=== PATIENT | female | born 1960 | race Caucasian/White ===

== ENCOUNTER 2017-01-29 14:19 | Emergency (ER) | payer BC ==
--- NOTE | 2017-01-29 15:04 | UC ---
Head Injury HPI - HPI Summary HPI Summary: The patient comes in today for: 1. Fall, head injury, worsening back pain, rib pain: Onset: 3 hours ago. Palliative/provocative: Moving makes it worse. Quality: Dull ache for the head, ribs and back. Region: Frontal, bitemporal, left lateroposterior, and upper left buttocks. Severity: 2/10 sitting Time: Constant. Associated symptoms: Neck pain: She denies any neck pain coming in to see us. None now. Numbness: None. Weakness: None. Fever/infection: None. Bowel/bladder dysfunction: None. Unexpected weight loss/cancers: None. LMP: Hyst 1999 Head injury: Nausea: present, No LOC. No disorientation. No confusion. No photophobia. No phonophobia. The patient states that she mainly comes in to avoid any pain 1-2 days after the fall which she states is a problem she has had in the past. She states that her doctor also told her to come in to see us. * - History Of Current Complaint Chief Complaint: UCHeadInjury Stated Complaint: FELL OFF HORSE-NECK,HEAD, SHOULDER Time Seen by Provider: 01/29/17 14:58 Hx Obtained From: Patient Hx Last Menstrual Period: 1999 - Allergies/Home Medications Allergies/Adverse Reactions: Allergies Allergy/AdvReac Type Severity Reaction Status Date / Time Cephalexin Allergy Difficulty Verified 01/29/17 14:27 Breathing Kiwi Extract Allergy Difficulty Verified 01/29/17 14:27 Breathing Morphine Allergy Difficulty Verified 01/29/17 14:27 Breathing Penicillins Allergy Difficulty Verified 01/29/17 14:27 Breathing PMH/Surg Hx/FS Hx/Imm Hx Previously Healthy: No - Chronic lower back pain. Endocrine History Of: Reports: Dyslipidemia - Not on medications at this time. Denies: Diabetes, Thyroid Disease, Hyperthyroidism, Hypothyroidism Cardiovascular History Of: Denies: Cardiac Disorders, Hypertension, Pacemaker/ICD, Myocardial Infarction , Congestive Heart Failure, Atrial Fibrillation, Deep Vein Thrombosis, Bleeding Disorders Respiratory History Of: Reports: Asthma Denies: COPD, Bronchitis, Pneumonia, Pulmonary Embolism GI/ History Of: Reports: Gastroesophageal Reflux Denies: Ulcer, Gastrointestinal Bleed, Gall Bladder Disease, Kidney Stones, Diverticulitis, Renal Disease, Urosepsis Neurological History Of: Denies: TIA, CVA, Dementia, Seizures, Migraine Psychological History Of: Reports: Depression Denies: Anxiety, Bipolar Disorder, Schizophrenia, Post Traumatic Stress Disorder Cancer History Of: Denies: Lung Cancer, Colorectal Cancer, Breast Cancer, Prostate Cancer, Cervical Cancer Other History Of: Negative For: HIV, Hepatitis B, Hepatitis C, Anticoagulant Therapy - Surgical History Surgical History: Yes Surgery Procedure, Year, and Place: Partial Hysterectomy, 1999, [facility]. Benign Meningeoma Brain Surgery, 2006, [facility] - Family History Known Family History: Positive: Cardiac Disease Negative: Hypertension - Social History Occupation: Retired Alcohol Use: Occasionally Substance Use Type: None Smoking Status (MU): Never Smoked Tobacco - Immunization History Most Recent Tetanus Shot: December 2012 Review of Systems Constitutional: Negative Skin: Negative Eyes: Negative ENT: Negative Respiratory: Negative Cardiovascular: Chest Pain - Lower left posterior chest wall pain. Gastrointestinal: Negative Musculoskeletal: Arthralgia All Other Systems Reviewed And Are Negative: Yes Physical Exam Triage Information Reviewed: Yes Appearance: Well-Appearing, No Pain Distress - She sits comfortably in her chair --no marked guarding or psychomotor slowing while moving in the chair. She is able to get up from the chair with only slight caution and guarding., Well- Nourished Vital Signs: Initial Vital Signs Temp 98 F 01/29/17 14:28 Pulse 70 01/29/17 14:28 Resp 18 01/29/17 14:28 BP 120/81 01/29/17 14:28 Pulse Ox 100 01/29/17 14:28 Vital Signs Reviewed: Yes Eyes: Positive: Conjunctiva Clear. Negative: Discharge ENT: Positive: Hearing grossly normal. Negative: Pharyngeal erythema, Nasal congestion, Nasal drainage, TM bulging, TM dull, TM red, Tonsillar swelling, Tonsillar exudate Dental: Positive: Gross Decay/Caries @. Negative: Dental Fracture @ Neck: Positive: Supple, Nontender, No Lymphadenopathy. Negative: Nuchal Rigidity Respiratory: Positive: Chest non-tender, Lungs clear, No respiratory distress, No accessory muscle use. Negative: Rhonchi, Wheezing Cardiovascular: Positive: RRR, No Murmur Abdomen Description: Positive: Nontender, No Organomegaly, Soft. Negative: Distended, Guarding Musculoskeletal: Positive: Strength Intact, ROM Intact, No Edema, Other: - She has no tenderness along the neck posteriorly. She has no guarding of movement or restriction in movement. She has tenderness to palpation of the left lower posterior ribs. She has tenderness along the lumbar spin (not over the spinous processes, but just to the left of them. There was also tenderness to palpation along the left sacrum. None of these places have ecchymosis or masses or redness or masses or abrasions. Neurological: Positive: Alert, Muscle Tone Normal - Neurologic exam: Inspection : No fasciculations. Tone: No rigidity. Strenth: Upper extremity: symmetrical and appropriate for age. Lower extremity: symmetrical and appropriate for age. Cranial nerves: I-XII normal. Reflexes: Upper extremity Biceps: 2+/2 x 2 Triceps: 2+/2 x 2 Brachioradialis: 2+/2 x 2 Lower extremity: Achilles: 2+/2 x 2 Patellar: 2+/2 x 2 Babinski: downgoing bilaterally. Sensation: No complaints of loss of sensation. Coordination: Upper extremity: Finger to nose, patting of thighs (and alternating) and finger to thumb tests: Normal for both extremities. Lower extremity: Heel up and down sultana: Normal for both extremities. Gait: Heel to toe: Normal REgular walking: Normal Rhomberg: Normal. Psychological: Positive: Age Appropriate Behavior, Consolable Skin: Negative: rashes, breakdown Diagnostics - Radiology No standard instances Xray Interpretation: Positive (See Comments) - The CT of the head, the CT of the lumbar spine and the sacrum/coccyx were all normal. She had positive fractures of the ribs. Radiology Interpretation Completed By: Radiologist Head Injury Course/Dx - Course Course Of Treatment: Patient was told of the radiographic findings. She was told of her treatment options including NSAIDS (short course) and rib belt. - Differential Dx/Diagnosis Provider Diagnoses: Contusion of the left buttocks. Head injury. left rib fractures 4th, 5th, and 8th Discharge - Discharge Plan Condition: Stable Disposition: HOME Patient Education Materials: Rib Fracture (ED), Contusion in Adults (ED) Referrals: Derrick Heck MD [Primary Care Provider] - 1 Week (Please see your primary care provider in about one to two weeks to see how well you are doing. If you get worse, please be seen sooner.)
--- NOTE | 2017-01-29 16:02 | RAD ---
INDICATION: Pain after falling off of horse COMPARISON: None TECHNIQUE: AP and lateral imaging of the coccyx and sacrum was performed FINDINGS: No acute bony findings are seen. The SI joints and symphysis are intact. The soft tissues are normal IMPRESSION: NO ACUTE PLAIN RADIOGRAPHIC FINDINGS. SUGGEST A FOLLOW-UP BONE SCAN IF THERE IS PERSISTENT CONCERN.
--- NOTE | 2017-01-29 16:09 | RAD ---
INDICATION: Fall. Pain lower left ribs COMPARISON: Left shoulder February 03, 2008 TECHNIQUE: Multiple views of the ribs were obtained. FINDINGS: Bones: There are findings suspicious for nondisplaced fractures of the left fourth, fifth and eighth ribs posterolaterally. LUNGS: The lungs are clear. There is no pneumothorax. Pleural spaces: There is no evidence of hemothorax. Other: None IMPRESSION: SUSPECT MULTIPLE NONDISPLACED LEFT-SIDED RIB FRACTURES. NO PNEUMOTHORAX
--- NOTE | 2017-01-29 16:26 | RAD ---
INDICATION: Headaches after falling off for 6. History of meningioma resection 2009 COMPARISON: None TECHNIQUE: Noncontrast axial source images were acquired from the skull base to the vertex. FINDINGS: Ventricles/sulci: The ventricles and cisterns are normal in size and configuration for age. Brain parenchyma: There is no focal parenchymal finding, evidence of intracranial mass, or intracranial mass effect. Intracranial hemorrhage:None. Extra-axial spaces: There are no abnormal extra axial fluid collections or evidence of extra-axial mass. Calvarium: There is a right temporal craniotomy defect. Scalp: There is no evidence of scalp or extracalvarial soft tissue abnormality. Paranasal sinuses/mastoid: The paranasal sinuses and mastoid air cells are clear. Other: None. IMPRESSION: NONCONTRAST IMAGING DEMONSTRATES NO ACUTE INTRACRANIAL FINDINGS. RIGHT-SIDED CRANIOTOMY DEFECT.
--- NOTE | 2017-01-29 16:37 | RAD ---
Indication: Low back and sacral region pain post fall from horse approximate 4 hours ago. Denies radiculopathy. Comparison: August 25, 2016 radiographs. Technique: Noncontrast CT lumbar sacral spine. Multiplanar reformation. Report: Negative for paravertebral hematoma. Negative for fracture. Chronic appearing RIGHT unilateral L5 spondylolysis without associated spondylolisthesis. Normal vertebral alignment without spondylolisthesis at any level. T12-L1: Unremarkable for age. L1-L2: Mild annular disc bulge with mild resulting impression on the ventral margin of the thecal sac without significant resulting central canal or foraminal stenosis. L2-L3: Mild annular disc bulge. Negative for significant acquired central canal or foraminal stenosis. L3-L4: Minimal annular disc bulge. Negative for acquired central canal or foraminal stenosis. L4-L5: In addition to annular disc bulge there is a small RIGHT para midline disc protrusion with resulting mild impression on the ventral margin of the thecal sac. Degenerative spondylosis and facet joint osteoarthritis results in mild RIGHT lateral recess and bilateral foraminal stenosis. L5-S1: Minimal annular disc bulge. Negative for acquired central canal or foraminal stenosis. IMPRESSION: 1. Negative for acute fracture or traumatic malalignment. 2. Chronic appearing RIGHT unilateral L5 spondylolysis without associated spondylolisthesis. 3. Multilevel degenerative spondylosis and facet joint osteoarthritis as described. At L4-L5 there is resulting mild RIGHT lateral recess and bilateral foraminal stenosis.
[2017-01-29 17:17] VITALS: BP 120/76
== END 2017-01-29 17:20 | disposition home or self-care (01) ==
LOC: UCCORT 14:19
DX: S09.90XA Unspecified injury of head, initial encounter (principal); S30.0XXA Contusion of lower back and pelvis, initial encounter; S22.42XA Multiple fractures of ribs, left side, initial encounter for closed fracture; V80.010A Animal-rider injured by fall from or being thrown from horse in noncollision accident, initial encounter; Y93.52 Activity, horseback riding; Y92.9 Unspecified place or not applicable; E78.5 Hyperlipidemia, unspecified; J45.909 Unspecified asthma, uncomplicated; K21.9 Gastro-esophageal reflux disease without esophagitis; F32.9 Major depressive disorder, single episode, unspecified; Z88.1 Allergy status to other antibiotic agents; Z88.5 Allergy status to narcotic agent; Z88.0 Allergy status to penicillin
CPT/HCPCS: 70450; 72131; 72220; 99213; G0463

== ENCOUNTER 2018-07-01 11:01 | Emergency (ER) | payer BC ==
[2018-07-01 11:23] VITALS: BP 121/69
--- NOTE | 2018-07-01 11:29 | UC ---
Abdominal Pain Female HPI - HPI Summary HPI Summary: 58 yo female presents with epigastric abdominal pain. She tells me that her pain began 3-4 months ago and was intermittent. Nothing made it better or worse. She has noticed her pain becoming more constant over the last few weeks. She tells me that last night her pain was the worst it has been and was radiating to her LUQ and RUQ. The discomfort makes her nauseous, but she has not vomited. She has had pancreatitis in the past and says that this feels similar. She admits to drinking daily or every other day - around "6 beers/ glasses of wine". Bowel movements alternate with constipation and loose stool, but this has been going on for years. Currently she denies fever, chills, SOB, chest pain, dysuria, flank pain, dizziness, or headache. - History of Current Complaint Chief Complaint: UCAbdominalPain Stated Complaint: ABD PAIN Time Seen by Provider: 07/01/18 11:28 Hx Obtained From: Patient Hx Last Menstrual Period: 1999 Onset/Duration: Gradual Onset Severity Initially: Moderate Severity Currently: Severe Pain Intensity: 7 Pain Scale Used: 0-10 Numeric Location: Epigastric Allergies/Adverse Reactions: Allergies Allergy/AdvReac Type Severity Reaction Status Date / Time cephalexin Allergy Difficulty Verified 07/01/18 11:16 Breathing kiwi Allergy Difficulty Verified 07/01/18 11:16 Breathing morphine Allergy Difficulty Verified 07/01/18 11:16 Breathing Penicillins Allergy Difficulty Verified 07/01/18 11:16 Breathing Home Medications: Home Medications Bacillus Coagulans [Ra Probiotic Gummies] 2 chw PO DAILY 07/01/18 [History Confirmed 07/01/18] FLUoxetine CAP* [PROzac CAP*] 80 mg PO QAM 07/01/18 [History Confirmed 07/01/18] Ibuprofen/Diphenhydramine Cit [Advil Pm Caplet] 1 each PO ONCE 07/01/18 [ History Confirmed 07/01/18] Pantoprazole TAB (NF) [Protonix TAB (NF)] 20 mg PO QAM 07/01/18 [History Confirmed 07/01/18] Pantoprazole TAB (NF) [Protonix TAB (NF)] 20 mg PO QPM PRN 07/01/18 [History Confirmed 07/01/18] PMH/Surg Hx/FS Hx/Imm Hx - Additional Past Medical History Additional PMH: PAncreatitis Psychological History: Anxiety, Depression Other History Of: Negative For: HIV, Hepatitis B, Hepatitis C, Anticoagulant Therapy - Surgical History Surgical History: Yes Surgery Procedure, Year, and Place: Bilateral Breast Reduction, 2011, [place]; Benign [place]ening[place] Brain Surgery, 2006, [place]; Partial Hysterectomy, 1999 , [facility] - Family History Known Family History: Positive: Cardiac Disease Negative: Hypertension - Social History Occupation: Employed Full-time Lives: With Family Alcohol Use: Occasionally Substance Use Type: None Smoking Status (MU): Never Smoked Tobacco - Immunization History Most Recent Tetanus Shot: December 2012 Review of Systems Constitutional: Negative Skin: Negative Respiratory: Negative Cardiovascular: Negative Gastrointestinal: Abdominal Pain Genitourinary: Negative Neurovascular: Negative Neurological: Negative Psychological: Negative All Other Systems Reviewed And Are Negative: Yes Physical Exam - Summary Physical Exam Summary: GENERAL: NAD. WDWN. No pain distress. SKIN: No rashes, sores, lesions, or open wounds. NECK: Supple. Nontender. No lymphadenopathy. CHEST: CTAB. No r/r/w. No accessory muscle use. Breathing comfortably and in no distress. CV: RRR. Without m/r/g. Pulses intact. Cap refill <2seconds ABDOMEN: Moderate TTP epigastric region. Mild TTP LUQ and RUQ. No distention or guarding. No CVA tenderness. Bowel sounds present NEURO: Alert. PSYCH: Age appropriate behavior. Triage Information Reviewed: Yes Vital Signs: Initial Vital Signs Temp 98.5 F 07/01/18 11:12 Pulse 76 07/01/18 11:12 Resp 16 07/01/18 11:12 BP 121/69 07/01/18 11:12 Pulse Ox 99 07/01/18 11:12 Laboratory Tests 07/01/18 11:31 POC Urine Color Yellow POC Urine Clarity Clear POC Urine pH 6.5 POC Ur Specif [place] 1.015 POC Urine Protein Negative POC Ur Glucose (UA) Negative POC Urine Ketones Negative POC Urine Blood Trace-intact A POC Urine Nitrite Negative POC Urine Bilirubin Negative POC Urine Urobilinogen 0.2 POC U Leukocyte Esteras Negative Vital Signs Reviewed: Yes Abd Pain Female Course/Dx - Course Course Of Treatment: Given that her abdominal pain has worsened significantly over the last 24 hours - I have advised the pt to be further evaluated in the ED with a suspicious for gastric ulcer, hepatitis, biliary obstruction/pathology , cholecystitis, or pancreatitis. Pt was agreeable to plan. She declined ambulance transfer and will drive herself. Report was given to a provider in the [facility] ED. - Differential Dx/Diagnosis Provider Diagnoses: Epigastric abdominal pain Discharge - Sign-Out/Discharge Documenting (check all that apply): Patient Departure All imaging exams completed and their final reports reviewed: No Studies - Discharge Plan Condition: Stable Disposition: TRANS HIGHER LVL OF CARE FAC Referrals: Derrick Heck MD [Primary Care Provider] - Additional Instructions: Please go to the ER for further evaluation of your abdominal pain - Billing Disposition and Condition Condition: STABLE Disposition: Trans Higher Lvl of Care Fac - Attestation Statements Provider Attestation: Chart reviewed. I was available for consult. I did not see this patient and was not involved in any disposition or treatment decisions.
== END 2018-07-01 11:56 | disposition short-term general hospital (02) ==
LOC: UCCORT 11:01
DX: R10.13 Epigastric pain (principal); Z88.5 Allergy status to narcotic agent; Z88.1 Allergy status to other antibiotic agents; Z88.0 Allergy status to penicillin
CPT/HCPCS: 81003; 99212; G0463